=== PATIENT | male | born 1975 | race Two or more races ===

== ENCOUNTER 2023-06-26 23:34 | Emergency (ER) | payer BC, MEDICAID ==
[~2023-06-26] VITALS: Ht 165.1 cm; Wt 97.0 kg
[2023-06-26 23:48] VITALS: O2SAT 98
[2023-06-27 04:22] LABS: BASOPHILS % 0.7 % (0.0-2.0); CHLORIDE 103 mEq/L (98-107); EOSINOPHILS % 2.4 % (0.0-5.0); HEMATOCRIT. 43.7 % (42.0-52.0); HEMOGLOBIN. 14.9 g/dL (14.0-18.0); LYMPHOCYTES % 29.9 % (20.0-50.0); MEAN CORPUSCULAR HEMOGLOBIN 29.9 pg (28.0-32.0); MEAN CORPUSCULAR VOLUME 87.7 fL (80.0-94.0); MEAN PLATELET VOLUME 7.2 fl (7.4-10.4); MONOCYTES % 10.4 % (2.0-8.0); NEUTROPHILS % 56.6 % (40.0-76.0); PLATELET 306 x1000/uL (130-400); POTASSIUM 3.5 mEq/L (3.5-5.1); RED BLOOD CELL COUNT 4.98 mill/uL (4.7-6.1); RED CELL DISTRIBUTION WIDTH 13.7 % (11.6-14.6); SODIUM 138 mEq/L (136-145); WHITE BLOOD COUNT 7.4 x1000/uL (4.5-11.0)
[2023-06-27 04:23] LABS: CALCIUM 10.2 mg/dL (8.7-10.4); CARBON DIOXIDE 30 mEq/L (21-32)
[2023-06-27 04:28] LABS: CREATININE 0.9 mg/dL (0.6-1.3); GLUCOSE 105 mg/dL (70-105); UREA NITROGEN BLOOD 15 mg/dL (9-23)
[2023-06-27 09:56] VITALS: BP 133/77; PULSE 68; RESP 18; TEMP 98.7
== END 2023-06-27 09:25 | disposition home or self-care (01) ==
LOC: ER 23:34
DX: S80.01XA Contusion of right knee, initial encounter (principal); X58.XXXA Exposure to other specified factors, initial encounter; Y93.89 Activity, other specified; Y92.89 Other specified places as the place of occurrence of the external cause; Y99.8 Other external cause status
CPT/HCPCS: 36415; 73560; 73590; 80048; 85025; 85379; 93971; 99284

== ENCOUNTER 2024-07-11 20:36 | Emergency (ER) | payer BC, MEDICAID ==
[~2024-07-11] VITALS: Ht 165.1 cm; Wt 95.0 kg
[2024-07-11 21:03] VITALS: BP 145/84; TEMP 37; O2SAT 98
[2024-07-11 21:11] VITALS: PULSE 82; RESP 16; O2SAT 98
[2024-07-11] MEDS ORDERED: AMOX-494 MT (22:09)
[2024-07-11] MEDS ORDERED: IBUP-2029 MT (22:09)
== END 2024-07-11 22:15 | disposition home or self-care (01) ==
LOC: ER 20:36
DX: K08.89 Other specified disorders of teeth and supporting structures (principal)
CPT/HCPCS: 99283